=== PATIENT | male | born 1995 | race Caucasian/White ===

== ENCOUNTER 2023-03-07 16:35 | Emergency (ER) | payer OTHER ==
[2023-03-07 17:11] VITALS: TEMP 97.8
[2023-03-07] MEDS ORDERED: HYDROcodone/APAP 5-325MG 1 EACH TAB PO STA (17:51)
[2023-03-07] MEDS ORDERED: dexAMETHasone 2 MG TAB PO STA (17:51)
[2023-03-07] MEDS ORDERED: AMOXIC-POT CLAV 875-125MG 1 EACH TAB PO STA (17:51)
[2023-03-07] MEDS ORDERED: ACET/COD 300 MG/30 MG STARTER PACK 6 TAB BTL PO STA (17:52)
--- NOTE | 2023-03-07 17:55 | ED ---
General Adult HPI - General Chief complaint: Dental/Oral Stated complaint: right jaw pain Time Seen by Provider: 03/07/23 17:38 Source: patient, RN notes reviewed, old records reviewed Mode of arrival: ambulatory Limitations: no limitations - History of Present Illness Initial comments: Patient is a 27-year-old male presents emergency Department complaining of dental pain. Is having pain in the right upper teeth. Has been ongoing for a few days. No she was swallowing. No nausea or vomiting. No difficulty breathing. Denies any fevers. Has not seen a dentist and "a while." Presents for further evaluation at this time. No systemic signs of infection such as fevers. States he is having shooting pain over the entire right jaw and right side of his face. No other acute complaints at this time. Presents for further evaluation. No Significant past medical history. - Related Data Previous Rx's Medication Instructions Recorded Amoxic-Pot Clav 875-125Mg 1 tab PO Q12HR 7 Days #14 tab 03/07/23 [Augmentin 875-125] Allergies Allergy/AdvReac Type Severity Reaction Status Date / Time No Known Allergies Allergy Verified 03/07/23 16:56 Review of Systems ROS Statement: Those systems with pertinent positive or pertinent negative responses have been documented in the HPI. Review of Systems: CONST: Denies fever EYES: Denies blurry vision ENT: Endorses toothache C/V: Denies Chest pain RESP: Denies shortness of breath GI: Denies abdominal pain : Denies dysuria SKIN: Denies rash. MSK: Denies joint pain. NEURO: Denies headache ROS Other: All systems not noted in ROS Statement are negative. Past Medical History Past Medical History: No Reported History Past Surgical History: Appendectomy Past Psychological History: Anxiety, Depression Smoking Status: Current every day smoker, Vaper Past Alcohol Use History: None Reported Past Drug Use History: None Reported General Exam - General Exam Comments Initial Comments: General:[ Appears in no acute distress.] Afebrile. HEAD: [Normal with no signs of head trauma.] EYES: [EOMI.] pupils are 3 mm and equal bilaterally. ENT: Patient has tetanus palpation over the right upper gum line and along the molars of the right upper jaw. No significant surrounding erythema or edema. No abscess appreciated. Tongue is not swollen. Uvula is midline. No floor the mouth edema or swelling. No stridor. Tolerating oral secretions. No facial edema. RESPIRATORY: [No respiratory distress.] C/V: [Regular rate and rhythm.] ABD: [Abdomen is nondistended.] EXT: [No obvious deformity.] SKIN: [ No rashes or lesions observed on exposed skin.] NEURO: [Alert and oriented.] Limitations: no limitations Course Vital Signs 03/07/23 16:53 Temperature 97.8 F Pulse Rate 66 Respiratory 20 Rate Blood Pressure 118/79 O2 Sat by Pulse 98 Oximetry Medical Decision Making - Medical Decision Making Was pt. sent in by a medical professional or institution (, JIGAR, ELECTROCARDIOGRAPH REPAIRER, urgent care, hospital, or jail...) When possible be specific @ -No Did you speak to anyone other than the patient for history (EMS, parent, family, police, friend...)? What history was obtained from this source @ -No Did you review nursing and triage notes (agree or disagree)? Why? @ -I reviewed and agree with nursing and triage notes Were old charts reviewed (outside hosp., previous admission, EMS record, old EKG, old radiological studies, urgent care reports/EKG's, jail records)? Report findings @ -No old charts were reviewed Differential Diagnosis (chest pain, altered mental status, abdominal pain women, abdominal pain men, vaginal bleeding, weakness, fever, dyspnea, syncope, headache, dizziness, GI bleed, back pain, seizure, CVA, palpatations, mental health, musculoskeletal)? @ -Toothache, tooth abscess, cavity, Terry angina. This list is not all-in clusive. EKG interpreted by me (3pts min.). @ -None done X-rays interpreted by me (1pt min.). @ -None done CT interpreted by me (1pt min.). @ -None done U/S interpreted by me (1pt. min.). @ -None done What testing was considered but not performed or refused? (CT, X-rays, U/S, labs)? Why? @ -None What meds were considered but not given or refused? Why? @ -None Did you discuss the management of the patient with other professionals (professionals i.e. , JIGAR, ELECTROCARDIOGRAPH REPAIRER, lab, RT, psych nurse, social sciences department chair, manager social responsibility, teacher, agricultural technical officer, porter sample case)? Give summary @ -No Was smoking cessation discussed for >3mins.? @ -No Was critical care preformed (if so, how long)? @ -No Were there social determinants of health that impacted care today? How? (Homelessness, low income, unemployed, alcoholism, drug addiction, transportation, low edu. Level, literacy, decrease access to med. care, longterm, rehab)? @ -No Was there de-escalation of care discussed even if they declined (Discuss DNR or withdrawal of care, Hospice)? DNR status @ -No What co-morbidities impacted this encounter? (DM, HTN, Smoking, COPD, CAD, Cancer, CVA, ARF, Chemo, Hep., AIDS, mental health diagnosis, sleep apnea, morbid obesity)? @ -None Was patient admitted / discharged? Hospital course, mention meds given and route, prescriptions, significant lab abnormalities, going to OR and other pertinent info. @ -Based on the patient's presentation and physical exam, presents with right upper dental pain. No concern for Terry angina at this time. I did discuss with the patient that he needs follow-up with a dentist and will be given follow-up information. Patient be empirically treated with a dose of steroids, antibiotics, and given a starter pack of analgesic medications. Patient in agreement this plan. Strict return precautions discussed. Vital signs within acceptable limits. I will provide the patient with a prescription for Augmentin. I instructed the patient to follow up with their PCP in the next 1-3 days. I provided contact information for follow up with dentistry. I explained that the patient should return to the emergency department if they experience any worsening symptoms. Strict return precautions were discussed with the patient. The patient expressed understanding of these instructions. I answered all questions that the patient had. The patient was discharged home in good condition with their prescriptions and follow up information. Undiagnosed new problem with uncertain prognosis? @ -No Drug Therapy requiring intensive monitoring for toxicity (Heparin, Nitro, Insulin, Cardizem)? @ -No Were any procedures done? @ -No Diagnosis/symptom? @ -Toothache Acute, or Chronic, or Acute on Chronic? @ -Acute Uncomplicated (without systemic symptoms) or Complicated (systemic symptoms)? @ -uncomplicated Side effects of treatment? @ -No Exacerbation, Progression, or Severe Exacerbation? @ -No Poses a threat to life or bodily function? How? (Chest pain, [place], [place], pneumonia, PE, COPD, DKA, ARF, appy, cholecystitis, CVA, Diverticulitis, Homicidal, Suicidal, threat to staff... and all critical care pts) @ -No Disposition Clinical Impression: Toothache Disposition: HOME SELF-CARE Condition: Fair Instructions (If sedation given, give patient instructions): Toothache (ED) Prescriptions: Amoxic-Pot Clav 875-125Mg [Augmentin 875-125] 1 tab PO Q12HR 7 Days #14 tab Is patient prescribed a controlled substance at d/c from ED?: No Referrals: None,Stated [Primary Care Provider] - 1-2 days Claudio Javier DDS [STAFF PHYSICIAN] - 1-2 days Time of Disposition: 17:48
[2023-03-07 18:20] VITALS: BP 111/75; PULSE 65; RESP 18
== END 2023-03-07 18:16 | disposition home or self-care (01) ==
LOC: EC 16:35
DX: K08.89 Other specified disorders of teeth and supporting structures (principal); F41.9 Anxiety disorder, unspecified; F32.A Depression, unspecified; F17.290 Nicotine dependence, other tobacco product, uncomplicated
CPT/HCPCS: 99282; J8540

== ENCOUNTER 2023-07-19 22:58 | Emergency (ER) | payer OTHER ==
--- NOTE | 2023-07-19 23:20 | ED ---
Chest Pain HPI - General Source: patient Mode of arrival: ambulatory Limitations: no limitations <Santiago Cadet - Last Filed: 07/19/23 23:20> - General Source: RN notes reviewed, old records reviewed Mode of arrival: ambulatory Limitations: no limitations - History of Present Illness MD Complaint: chest pain, other (Significant and severe anxiety) -: hour(s) Onset: during rest Pain Location: substernal Severity: mild Severity scale (1-10): 2 Quality: tightness, aching Consistency: intermittent Improves With: nothing Anginal Symptoms: dyspnea, sense of impending doom Other Symptoms: palpitations Treatments Prior to Arrival: none <Claudio Benjamin - Last Filed: 07/28/23 22:09> - General Chief Complaint: Chest Pain Stated Complaint: panic attack Time Seen by Provider: 07/19/23 23:19 - History of Present Illness Initial Comments: 27-year-old male presented to ED with complaints of chest pain. Patient reports approximately an hour ago while he was playing videogames started feeling the middle of his chest "caving in" with associated nausea and reports that his whole body "feels weird". (Santiago Cadet) This is a 27-year-old male to the ER for evaluation of chest pain. Patient is significant chest pain and anxiety that occurred prior to arrival although mildly improving here in the ER (Claudio Benjamin) - Related Data Previous Rx's Medication Instructions Recorded Amoxic-Pot Clav 875-125Mg 1 tab PO Q12HR 7 Days #14 tab 03/07/23 [Augmentin 875-125] Allergies Allergy/AdvReac Type Severity Reaction Status Date / Time No Known Allergies Allergy Verified 07/19/23 23:04 Review of Systems ROS Other: All systems not noted in ROS Statement are negative. <Santiago Cadet - Last Filed: 07/19/23 23:20> ROS Other: All systems not noted in ROS Statement are negative. <Claudio Benjamin - Last Filed: 07/28/23 22:09> ROS Statement: Those systems with pertinent positive or pertinent negative responses have been documented in the HPI. Past Medical History Past Medical History: No Reported History Past Surgical History: Appendectomy Past Psychological History: Anxiety, Depression Smoking Status: Current every day smoker, Vaper Past Alcohol Use History: None Reported Past Drug Use History: None Reported <HelioKellySantiago - Last Filed: 07/19/23 23:20> General Exam Limitations: no limitations <Santiago Cadet - Last Filed: 07/19/23 23:20> General appearance: alert, in no apparent distress, anxious Head exam: Present: atraumatic, normocephalic, normal inspection Eye exam: Present: normal appearance, PERRL, EOMI. Absent: scleral icterus, conjunctival injection, periorbital swelling ENT exam: Present: normal exam, mucous membranes moist Neck exam: Present: normal inspection. Absent: tenderness, meningismus, lymphadenopathy Respiratory exam: Present: normal lung sounds bilaterally. Absent: respiratory distress, wheezes, rales, rhonchi, stridor Cardiovascular Exam: Present: regular rate, normal rhythm, normal heart sounds. Absent: systolic murmur, diastolic murmur, rubs, gallop, clicks GI/Abdominal exam: Present: soft, normal bowel sounds. Absent: distended, tenderness, guarding, rebound, rigid Extremities exam: Present: normal inspection, full ROM, normal capillary refill. Absent: tenderness, pedal edema, joint swelling, calf tenderness Back exam: Present: normal inspection Neurological exam: Present: alert, oriented X3, CN II-XII intact Psychiatric exam: Present: normal affect, normal mood Skin exam: Present: warm, dry, intact, normal color. Absent: rash <Claudio Benjamin - Last Filed: 07/28/23 22:09> - General Exam Comments Initial Comments: visual Physical Exam Vital signs reviewed General: Well-appearing, nontoxic, no acute distress. Head: Normocephalic, atraumatic Eyes: PERRLA, EOMI ENT: Airway patent Chest: Nonlabored breathing Skin: No visual rash, normal skin tone Neuro: Alert and oriented 3 Musculoskeletal: No gross abnormalities (Santiago Cadet) Course <Claudio Benjamin - Last Filed: 07/28/23 22:09> Vital Signs 07/19/23 07/20/23 23:01 01:10 Temperature 97.8 F 98.0 F Pulse Rate 76 69 Respiratory 18 16 Rate Blood Pressure 118/79 128/72 O2 Sat by Pulse 97 100 Oximetry - Reevaluation(s) Reevaluation #1: Medical records reviewed (Claudio Benjamin) Reevaluation #2: Patient symptoms improved (Claudio Benjamin) Reevaluation #3: Patient informed of results and questions answered (Claudio Benjamin) Reevaluation #4: Was pt. sent in by a medical professional or institution (, JIGAR, SLAB INSPECTOR, urgent care, hospital, or detention...) When possible be specific @ -no Did you speak to anyone other than the patient for history (EMS, parent, family, police, friend...)? What history was obtained from this source @ -no Did you review nursing and triage notes (agree or disagree)? Why? @ -agree Are old charts reviewed (outside hosp., previous admission, EMS record, old EKG, old radiological studies, urgent care reports/EKG's, detention records)? Report findings @ -yes Differential Diagnosis (chest pain, altered mental status, abdominal pain women, abdominal pain men, vaginal bleeding, weakness, fever, dyspnea, syncope, headache, dizziness, GI bleed, back pain, seizure, CVA, palpatations, mental health, musculoskeletal)? @ -prior EKG interpreted by me (3pts min.). @ -no X-rays interpreted by me (1pt min.). @ -no CT interpreted by me (1pt min.). @ -no U/S interpreted by me (1pt. min.). @ -no What testing was considered but not performed or refused? (CT, X-rays, U/S, labs)? Why? @ -none What meds were considered but not given or refused? Why? @ -none Did you discuss the management of the patient with other professionals (professionals i.e. JIGAR Horn, SLAB INSPECTOR, lab, RT, psych nurse, drug abuse social worker, blood donor recruiter, teacher, contract officer, case packer)? Give summary @ -no Was smoking cessation discussed for >3mins.? @ -no Was critical care preformed (if so, how long)? @ -no Were there social determinants of health that impacted care today? How? (Homelessness, low income, unemployed, alcoholism, drug addiction, transportation, low edu. Level, literacy, decrease access to med. care, senior living, rehab)? @ -none Was there de-escalation of care discussed even if they declined (Discuss DNR or withdrawal of care, Hospice)? DNR status @ -no What co-morbidities impacted this encounter? (DM, HTN, Smoking, COPD, CAD, Cancer, CVA, ARF, Chemo, Hep., AIDS, mental health diagnosis, sleep apnea, morbid obesity)? @ -none Was patient admitted / discharged? Hospital course, mention meds given and route, prescriptions, significant lab abnormalities, going to OR and other pertinent info. @ -27 male with severe anxiety attack. Symptoms resolved here in the ER and he can be discharged home Undiagnosed new problem with uncertain prognosis? @ -no Drug Therapy requiring intensive monitoring for toxicity (Heparin, Nitro, Insulin, Cardizem)? @ -no Were any procedures done? @ -no Diagnosis/symptom? @ -Severe anxiety Acute, or Chronic, or Acute on Chronic? @ -Acute Uncomplicated (without systemic symptoms) or Complicated (systemic symptoms)? @ -Complicated Side effects of treatment? @ -no Exacerbation, Progression, or Severe Exacerbation? @ -exacerbation Poses a threat to life or bodily function? How? (Chest pain, [place], [place], pneumonia, PE, COPD, DKA, ARF, appy, cholecystitis, CVA, Diverticulitis, Homicidal, Suicidal, threat to staff... and all critical care pts) @ -no (Claudio Benjamin) Chest Pain MDM <Santiago Cadet - Last Filed: 07/19/23 23:20> <Claudio Benjamin - Last Filed: 07/28/23 22:09> - MDM Quicknote portion performed. Signed Santiago Cadet PA-C (Santiago Cadet) 27 male to ER with severe anxiety attack with symptoms resolved here in the ER patient can be discharged home (Claudio Benjamin) Disposition <Santiago Cadet - Last Filed: 07/19/23 23:20> Is patient prescribed a controlled substance at d/c from ED?: No Time of Disposition: 00:40 <Claudio Benjamin - Last Filed: 07/28/23 22:09> Clinical Impression: Atypical chest pain, Chest pain, Panic attack Disposition: HOME SELF-CARE Condition: Good Instructions (If sedation given, give patient instructions): Anxiety (ED) Referrals: None,Stated [Primary Care Provider] - 1-2 days
[2023-07-19 23:33] LABS: Basophils # (A) 0.1 k/uL (0-0.2); Basophils % (A) 1 %; Eosinophils # (A) 0.2 k/uL (0-0.7); Eosinophils % (A) 3 %; HCT 46.3 % (39.0-53.0); HGB 14.8 gm/dL (13.0-17.5); Lymphocytes # (A) 1.3 k/uL (1.0-4.8); Lymphocytes % (A) 17 %; MCH 27.5 pg (25.0-35.0); Mean Platelet Volume 8.5; Monocytes # (A) 0.4 k/uL (0-1.0); Monocytes % (A) 6 %; Neutrophils # (A) 5.3 k/uL (1.3-7.7); Neutrophils % (A) 71 %; Platelet Count 285 k/uL (150-450); RBC 5.39 m/uL (4.30-5.90); WBC 7.5 k/uL (3.8-10.6)
--- NOTE | 2023-07-19 23:33 | XR ---
EXAM: XR Chest, 2 Views CLINICAL HISTORY: ITS.REASON XR Reason: Chest Pain TECHNIQUE: Frontal and lateral views of the chest. COMPARISON: No relevant prior studies available. FINDINGS: Lungs: Unremarkable. No consolidation. Pleural space: Unremarkable. No pneumothorax. Heart: Unremarkable. No cardiomegaly. Mediastinum: Unremarkable. Normal mediastinal contour. Bones/joints: Unremarkable. No acute fracture. IMPRESSION: Normal chest x-rays.
[2023-07-19 23:51] LABS: ALT 27 U/L (4-49); African American GFR (CKD) >90 (>60 ml/min/1.73 sqM); Albumin 4.8 g/dL (3.5-5.0); Anion Gap 11 mmol/L; Blood Urea Nitrogen 14 mg/dL (9-20); Calcium 9.7 mg/dL (8.4-10.2); Carbon Dioxide 20 mmol/L (22-30); Chloride 108 mmol/L (98-107); Glucose 85 mg/dL (74-99); Non-African American GFR(CKD) >90 (>60 ml/min/1.73 sqM); Sodium 139 mmol/L (137-145); Total Bilirubin 0.7 mg/dL (0.2-1.3); Total Protein 8.3 g/dL (6.3-8.2)
[2023-07-19 23:54] LABS: Partial Thromboplastin Time 25.9 sec (22.0-30.0)
[2023-07-19 23:57] LABS: AST 41 U/L (17-59); Alkaline Phosphatase 67 U/L (38-126); Magnesium 1.8 mg/dL (1.6-2.3)
[2023-07-20] MEDS: LORazepam 2 MG/ML INJ IV STA (00:43)
[2023-07-20] MEDS: ONDANSETRON 4 MG TAB PO STA (00:44)
[2023-07-20] MEDS: LORazepam 1 MG TAB PO STA (00:48)
[2023-07-20] MEDS: ONDANSETRON 4 MG ODT STARTER PACK 2 TAB BTL PO STA (00:48)
[2023-07-20 02:02] VITALS: BP 128/72; PULSE 69; RESP 16; TEMP 98
== END 2023-07-20 01:10 | disposition home or self-care (01) ==
LOC: EC 22:58
DX: R07.89 Other chest pain (principal); F17.290 Nicotine dependence, other tobacco product, uncomplicated
CPT/HCPCS: 36415; 80053; 83735; 84484; 85025; 85610; 85730; 71046; 99285; 96374; J2060; S0119; 93005